=== PATIENT | female | born 1975 | race Two or more races ===

== ENCOUNTER 2018-09-02 14:40 | Outpatient (CLI) | payer OTHER | END 2018-09-02 14:53 | disposition home or self-care (01) | LOC: MAMO-SONO 14:40 | DX: Z12.31 Encounter for screening mammogram for malignant neoplasm of breast (principal); N60.01 Solitary cyst of right breast; N60.02 Solitary cyst of left breast ==

== ENCOUNTER 2018-09-02 15:45 | Outpatient (CLI) | payer OTHER | END 2018-09-02 16:13 | disposition home or self-care (01) | LOC: LAB 15:45 | DX: E78.2 Mixed hyperlipidemia (principal); N95.1 Menopausal and female climacteric states ==